=== PATIENT | female | born 1945 | race Caucasian/White ===

== ENCOUNTER 2016-06-27 06:52 | Inpatient (IN) | payer MEDICARE ==
[~2016-06-27] VITALS: Ht 152.4 cm; Wt 40.8 kg
[~2016-06-27 06:52] MED LIST: BACTRIM DS 8001 TAB PO; FOLIC ACID 11 MG/TA1 PO; INDERAL 20MG20 MG PO; KLOR-CON M2020 MEQ PO; LEVAQUIN 5500 MG/TA1 PO; LIBRIUM 25M25 MG/CAP PO; MEGACE ORAL40 MG/ML PO; MULTI VITAMINS1 TAB PO; MYSOLINE 5050 MG/TAB PO; NORCO 325 MG-51 TAB PO; THIAMINE 1100 MG/TAB PO; TYLENOL 325MG325 MG PO; TYLENOL 500MG500 MG PO; ULTRAM 50MG TAB50 MG PO; UNABLE; VITAMIN C500 MG PO
[2016-06-27 07:38] LABS: BASO % 0.7 % (0.0-2.0); EOS # 0.1 (0.0-0.7); GRAN # 2.6 (1.4-6.5); GRAN % 46.4 % (42.2-75.2); HEMATOCRIT 39.4 % (37.0-47.0); HEMOGLOBIN 13.7 g/dl (12.5-16.0); LYMPH # 2.3 (1.2-3.4); LYMPH % 41.8 % (20.0-51.0); MEAN CELL VOLUME 103 fl (80.0-100.0); MEAN CORPUSCULAR HEMOGLOBIN 36 pg (27.0-31.0); MEAN CORPUSCULAR HGB CONC 35 g/dl (33.0-37.0); MEAN PLATELET VOLUME 9.3 fl (7.4-10.4); MONO # 0.5 (0.1-0.6); MONO % 8.9 % (1.7-9.3); PLATELET COUNT 298 K/mm3 (130-400); RED BLOOD COUNT 3.83 M/mm3 (4.10-5.30); REDCELL DISTRIBUTION WIDTH-CV 14.5 % (11.5-14.5); WHITE BLOOD COUNT 5.6 K/mm3 (4.8-10.8)
[2016-06-27 08:07] LABS: PARTIAL THROMBOPLASTIN TIME 32.9 SECONDS (26.0-37.0)
[2016-06-27 08:12] LABS: ADJUSTED CALCIUM 8.5 mg/dL (8.4-10.2); ALANINE AMINOTRANSFERASE 29 U/L (9-52); ALBUMIN 4.2 gm/dL (3.5-5.0); ALKALINE PHOSPHATASE 134 U/L (50-136); ANION GAP 12 mmol/L (7-16); BILIRUBIN,TOTAL 0.8 mg/dL (0.0-1.0); BLOOD UREA NITROGEN 10 mg/dL (7-17); C-REACTIVE PROTEIN 0.7 mg/dL (0.0-0.9); CALCIUM 8.7 mg/dL (8.4-10.2); CARBON DIOXIDE 30 mmol/L (22-30); CHLORIDE 103 mmol/L (98-107); CREATININE, serum 0.47 mg/dL (0.52-1.25); GLUCOSE 96 mg/dL (74-106); PHOSPHOROUS 4.1 mg/dL (2.5-4.5); POTASSIUM 3.7 mmol/L (3.4-5.0); SODIUM 144 mmol/L (137-145); TOTAL PROTEIN 7.2 gm/dL (6.4-8.2)
[2016-06-27 08:22] LABS: TROPONIN-I < 0.012 ng/mL (0.000-0.034)
[2016-06-27 10:12] LABS: PH 6 (5-8); SQUAMOUS EPITHELIAL 0-2 /hpf; URINE APPEARANCE Clear; URINE BACTERIA None Seen /hpf; URINE BILIRUBIN Negative (NEGATIVE); URINE BLOOD 1+ (NEGATIVE); URINE COLOR Yellow; URINE GLUCOSE Negative (NEGATIVE); URINE KETONE Negative (NEGATIVE); URINE RBC 0-2 /hpf; URINE UROBILINOGEN Negative (NEGATIVE); URINE WBC 0-2 /hpf
[2016-06-27 12:15] VITALS: BP 132/82; PULSE 100; TEMP 97.2
[2016-06-27] MEDS ORDERED: EXCEDRIN TENSIO1 TAB PO (15:17)
[2016-06-27] MEDS ORDERED: ASPIRIN 32325 MG/TA1 PO (15:17)
[2016-06-27 16:17] VITALS: BP 118/74; PULSE 103; TEMP 98.5
[2016-06-27 18:09] VITALS: BP 133/92; PULSE 108; TEMP 97.2
[2016-06-27 19:45] VITALS: BP 104/61; PULSE 124; TEMP 99.2
[2016-06-27 22:06] VITALS: BP 123/73; PULSE 94; TEMP 98.1
[2016-06-28] VITALS (11 sets, daily range): BP systolic 120–140; BP diastolic 64–98; PULSE 79–120; TEMP 96.4–98.4
[2016-06-28 06:25] LABS: PH 6 (5-8); SQUAMOUS EPITHELIAL 0-2 /hpf; URINE APPEARANCE Hazy; URINE BACTERIA None Seen /hpf; URINE BILIRUBIN Negative (NEGATIVE); URINE BLOOD Negative (NEGATIVE); URINE COLOR Amber; URINE GLUCOSE Negative (NEGATIVE); URINE KETONE Negative (NEGATIVE); URINE RBC 0-2 /hpf
[2016-06-28 06:29] LABS: AMPHETAMINE URINE NEGATIVE; BARBITURATES URINE POSITIVE; BENZODIAZEPINES URINE POSITIVE; BUPRENORPHINE URINE NEGATIVE; METHADONE URINE NEGATIVE; OPIATES URINE NEGATIVE; OXYCODONE URINE NEGATIVE; PHENCYCLIDINE URINE NEGATIVE; PROPOXYPHENE URINE NEGATIVE; THC CANNABINOIDS URINE NEGATIVE
[2016-06-28 08:41] LABS: CALCIUM 9.8 mg/dL (8.4-10.2); CREATININE, serum 0.53 mg/dL (0.52-1.25); POTASSIUM 3.8 mmol/L (3.4-5.0)
[2016-06-29] VITALS (7 sets, daily range): BP systolic 108–153; BP diastolic 66–89; PULSE 66–113; TEMP 96.2–98.3
[2016-06-29] MEDS ORDERED: CLEOCIN HCL300 MG PO (08:44)
[2016-06-29] MEDS ORDERED: DUO-KAPS1 CAP PO (08:46)
[2016-06-29] MEDS ORDERED: FOLIC ACID 11 MG/TA1 PO (08:46)
[2016-06-29] MEDS ORDERED: MIRTAZAPINE7.5 MG PO (08:46)
[2016-06-29] MEDS ORDERED: THIAMINE 1100 MG/TAB PO (08:46)
== END 2016-06-29 15:02 | disposition home health service (06) | DRG 897 ==
LOC: COL.ER 06:52 → MEDICAL 10:05
PROVIDERS: Emergency Medicine; Internal Medicine; Physician Assistant
DX: F10.229 Alcohol dependence with intoxication, unspecified (principal); L03.116 Cellulitis of left lower limb; Y90.8 Blood alcohol level of 240 mg/100 ml or more; G25.0 Essential tremor; I10 Essential (primary) hypertension; F32.9 Major depressive disorder, single episode, unspecified; R26.9 Unspecified abnormalities of gait and mobility; Z87.891 Personal history of nicotine dependence; Z91.81 History of falling
CPT/HCPCS: 90791-AI; 99222-AI; 99232-AI; 99239; J1650; J3360; J3411; J7030; Q9967

== ENCOUNTER 2016-07-13 21:10 | Emergency (ER) | payer MEDICARE ==
[~2016-07-13] VITALS: Ht 167.6 cm; Wt 45.5 kg
[~2016-07-13 21:10] MED LIST changes: +ASPIRIN 32325 MG/TA1 PO; +CLEOCIN HCL300 MG PO; +DUO-KAPS1 CAP PO; +EXCEDRIN TENSIO1 TAB PO; +MIRTAZAPINE7.5 MG PO
[2016-07-13 21:13] VITALS: TEMP 97.5
[2016-07-13 22:46] LABS: PH 7 (5-8); SQUAMOUS EPITHELIAL 0-2 /hpf; URINE APPEARANCE Clear; URINE BACTERIA None Seen /hpf; URINE BILIRUBIN Negative (NEGATIVE); URINE BLOOD Negative (NEGATIVE); URINE COLOR Yellow; URINE GLUCOSE Negative (NEGATIVE); URINE KETONE Negative (NEGATIVE); URINE RBC 0-2 /hpf; URINE UROBILINOGEN Negative (NEGATIVE); URINE WBC 0-2 /hpf
[2016-07-13 22:49] LABS: BASO # 0.1 (0.0-0.2); BASO % 1.1 % (0.0-2.0); EOS # 0.1 (0.0-0.7); EOS % 1.4 % (0-4.0); GRAN % 64.8 % (42.2-75.2); HEMOGLOBIN 12.5 g/dl (12.5-16.0); LYMPH % 21.8 % (20.0-51.0); MEAN CELL VOLUME 103 fl (80.0-100.0); MEAN CORPUSCULAR HEMOGLOBIN 36 pg (27.0-31.0); MEAN CORPUSCULAR HGB CONC 35 g/dl (33.0-37.0); MEAN PLATELET VOLUME 9.5 fl (7.4-10.4); MONO % 10.7 % (1.7-9.3); PLATELET COUNT 377 K/mm3 (130-400); RED BLOOD COUNT 3.52 M/mm3 (4.10-5.30); REDCELL DISTRIBUTION WIDTH-CV 14.6 % (11.5-14.5); WHITE BLOOD COUNT 9.3 K/mm3 (4.8-10.8)
[2016-07-13 22:50] LABS: HEMATOCRIT 36.1 % (37.0-47.0)
[2016-07-13 23:03] LABS: ADJUSTED CALCIUM 9.6 mg/dL (8.4-10.2); ALBUMIN 3.5 gm/dL (3.5-5.0); BILIRUBIN,TOTAL 1.1 mg/dL (0.0-1.0); CALCIUM 9.2 mg/dL (8.4-10.2); CREATININE, serum 0.6 mg/dL (0.52-1.25); MAGNESIUM 2.2 mg/dL (1.6-2.3); PHOSPHOROUS 3.4 mg/dL (2.5-4.5); POTASSIUM 4.2 mmol/L (3.4-5.0); TOTAL PROTEIN 6.2 gm/dL (6.4-8.2)
[2016-07-13 23:17] LABS: PROTHROMBIN TIME 11.6 SECONDS (9.7-12.8)
[2016-07-13 23:20] LABS: PARTIAL THROMBOPLASTIN TIME 27.8 SECONDS (26.0-37.0)
[2016-07-14 05:18] VITALS: BP 106/66; PULSE 93
== END 2016-07-14 05:20 | disposition home or self-care (01) ==
LOC: COL.ER 21:10
PROVIDERS: Emergency Medicine
DX: Z02.89 Encounter for other administrative examinations (principal)
CPT/HCPCS: J3360; J3411; J7030

== ENCOUNTER 2016-07-14 14:42 | Inpatient (IN) | payer MEDICARE, OTHER ==
[2016-07-14] VITALS (115 sets, daily range): BP systolic 110; BP diastolic 62; PULSE 92; TEMP 98.2; O2SAT 90–99
[~2016-07-14] VITALS: Ht 152.4 cm; Wt 49.8 kg
[2016-07-14 16:58] LABS: PROTHROMBIN TIME 11.6 SECONDS (9.7-12.8)
[2016-07-14 17:00] LABS: BASO # 0.1 (0.0-0.2); BASO % 0.5 % (0.0-2.0); EOS # 0.1 (0.0-0.7); EOS % 0.6 % (0-4.0); GRAN # 7.2 (1.4-6.5); GRAN % 77.4 % (42.2-75.2); HEMOGLOBIN 12.7 g/dl (12.5-16.0); LYMPH # 1.4 (1.2-3.4); LYMPH % 15.3 % (20.0-51.0); MEAN CELL VOLUME 104 fl (80.0-100.0); MEAN CORPUSCULAR HEMOGLOBIN 36 pg (27.0-31.0); MEAN CORPUSCULAR HGB CONC 35 g/dl (33.0-37.0); MEAN PLATELET VOLUME 9.5 fl (7.4-10.4); MONO # 0.6 (0.1-0.6); PLATELET COUNT 384 K/mm3 (130-400); REDCELL DISTRIBUTION WIDTH-CV 14.6 % (11.5-14.5); WHITE BLOOD COUNT 9.2 K/mm3 (4.8-10.8)
[2016-07-14 17:01] LABS: HEMATOCRIT 36.3 % (37.0-47.0); PARTIAL THROMBOPLASTIN TIME 30.6 SECONDS (26.0-37.0)
[2016-07-14 17:05] LABS: ALBUMIN 3.7 gm/dL (3.5-5.0); BILIRUBIN,TOTAL 1.1 mg/dL (0.0-1.0); CALCIUM 8.8 mg/dL (8.4-10.2); CREATININE, serum 0.61 mg/dL (0.52-1.25); POTASSIUM 3.9 mmol/L (3.4-5.0); TOTAL PROTEIN 6.3 gm/dL (6.4-8.2)
[2016-07-14 23:08] LABS: PH 6 (5-8); SQUAMOUS EPITHELIAL None Seen /hpf; URINE APPEARANCE Clear; URINE BACTERIA None Seen /hpf; URINE BILIRUBIN Negative (NEGATIVE); URINE BLOOD Negative (NEGATIVE); URINE COLOR Yellow; URINE GLUCOSE Negative (NEGATIVE); URINE KETONE Trace (NEGATIVE); URINE RBC 0-2 /hpf; URINE UROBILINOGEN Negative (NEGATIVE); URINE WBC 0-2 /hpf
[2016-07-15] VITALS (443 sets, daily range): BP systolic 76–155; BP diastolic 42–101; PULSE 73–100; TEMP 97–98.8; O2SAT 80–98
[2016-07-15 06:14] LABS: MEAN CELL VOLUME 104 fl (80.0-100.0); MEAN CORPUSCULAR HGB CONC 34 g/dl (33.0-37.0); MEAN PLATELET VOLUME 9.5 fl (7.4-10.4); PLATELET COUNT 324 K/mm3 (130-400); RED BLOOD COUNT 3.14 M/mm3 (4.10-5.30); REDCELL DISTRIBUTION WIDTH-CV 14.7 % (11.5-14.5)
[2016-07-15 06:23] LABS: HEMATOCRIT 32.7 % (37.0-47.0); HEMOGLOBIN 11.2 g/dl (12.5-16.0); MEAN CORPUSCULAR HEMOGLOBIN 36 pg (27.0-31.0)
[2016-07-15 06:27] LABS: CALCIUM 8.6 mg/dL (8.4-10.2); CREATININE, serum 0.54 mg/dL (0.52-1.25); MAGNESIUM 1.6 mg/dL (1.6-2.3); PHOSPHOROUS 3.4 mg/dL (2.5-4.5); POTASSIUM 3.7 mmol/L (3.4-5.0)
[2016-07-16] VITALS (11 sets, daily range): BP systolic 88–120; BP diastolic 50–96; PULSE 80–113; TEMP 97.4–99.1
[2016-07-16 09:29] LABS: HEMOGLOBIN 9.5 g/dl (12.5-16.0)
[2016-07-17] VITALS (11 sets, daily range): BP systolic 107–143; BP diastolic 56–82; PULSE 64–110; TEMP 97.2–99.1
[2016-07-17 09:21] LABS: HEMATOCRIT 28.7 % (37.0-47.0); HEMOGLOBIN 9.8 g/dl (12.5-16.0)
[2016-07-17 16:35] LABS: INFLUENZA B NEGATIVE
[2016-07-18] VITALS (10 sets, daily range): BP systolic 109–141; BP diastolic 54–90; PULSE 57–108; TEMP 97.2–98.2
[2016-07-19] VITALS (10 sets, daily range): BP systolic 107–149; BP diastolic 58–87; PULSE 60–114; TEMP 97.8–99.8
[2016-07-19] MEDS ORDERED: ASPI325T6 PO (08:17)
[2016-07-19] MEDS ORDERED: REMERON 15M15 MG/TA1 PO (08:19)
[2016-07-19] MEDS ORDERED: MUCINEX1200 MG PO (08:20)
[2016-07-19] MEDS ORDERED: DULCOLAX S10 MG/SUPP RC (08:21)
[2016-07-19] MEDS ORDERED: SENOKOT S 50 MG1 TAB PO (08:21)
[2016-07-19] MEDS ORDERED: NORCO 325 MG-51 TAB PO (08:22)
[2016-07-19 08:39] LABS: BASO % 0.3 % (0.0-2.0); EOS # 0.4 (0.0-0.7); GRAN # 4.9 (1.4-6.5); GRAN % 56.5 % (42.2-75.2); LYMPH # 1.8 (1.2-3.4); MEAN CELL VOLUME 108 fl (80.0-100.0); MEAN CORPUSCULAR HGB CONC 34 g/dl (33.0-37.0); MEAN PLATELET VOLUME 9.3 fl (7.4-10.4); MONO # 1.4 (0.1-0.6); MONO % 16.4 % (1.7-9.3); PLATELET COUNT 373 K/mm3 (130-400); RED BLOOD COUNT 2.72 M/mm3 (4.10-5.30); REDCELL DISTRIBUTION WIDTH-CV 14.9 % (11.5-14.5); WHITE BLOOD COUNT 8.7 K/mm3 (4.8-10.8)
[2016-07-19 08:40] LABS: HEMATOCRIT 29.3 % (37.0-47.0); HEMOGLOBIN 9.9 g/dl (12.5-16.0); MEAN CORPUSCULAR HEMOGLOBIN 36 pg (27.0-31.0)
[2016-07-19 08:49] LABS: CALCIUM 8.8 mg/dL (8.4-10.2); CREATININE, serum 0.45 mg/dL (0.52-1.25); POTASSIUM 3.4 mmol/L (3.4-5.0)
[2016-07-19] MEDS ORDERED: LIBRIUM 25M25 MG/CAP PO (10:35)
== END 2016-07-19 15:20 | disposition home or self-care (01) | DRG 470 ==
LOC: COL.ER 14:42 → IMCU 17:51 → COL.ER 17:51 → IMCU 17:51 → SURG 07-15 09:12 → IMCU 07-15 09:12 → SURG 07-15 20:20 → IMCU 07-15 20:20 → SURG 07-19 15:20
PROVIDERS: Emergency Medicine; Internal Medicine; Nurse Practitioner Family; Orthopaedic Surgery Sports Medicine
PROC: 0SRS0J9 Replacement of Left Hip Joint, Femoral Surface with Synthetic Substitute, Cemented, Open Approach (ICD-10-PCS; principal; 2016-07-15 08:00)
DX: S72.002A Fracture of unspecified part of neck of left femur, initial encounter for closed fracture (principal); F10.24 Alcohol dependence with alcohol-induced mood disorder; D62 Acute posthemorrhagic anemia; F10.239 Alcohol dependence with withdrawal, unspecified; R45.851 Suicidal ideations; E44.0 Moderate protein-calorie malnutrition; Z66 Do not resuscitate; W18.30XA Fall on same level, unspecified, initial encounter; Z87.891 Personal history of nicotine dependence; I10 Essential (primary) hypertension; T51.0X1A Toxic effect of ethanol, accidental (unintentional), initial encounter; Y90.8 Blood alcohol level of 240 mg/100 ml or more
CPT/HCPCS: OP; 90791-AI; 99223-AI; 99232-AI; 99233-AI; 99239; A9284; C1776; J0690; J1644; J2250; J2270; J2370; J2405; J2704; J3010; J3360; J3411; J7030; J7120

== ENCOUNTER → 2016-07-28 | Outpatient (REF) ==
[~2016-07-28] MED LIST changes: +ASPI325T6 PO; +DULCOLAX S10 MG/SUPP RC; +MUCINEX1200 MG PO; +PRILOTC PO; +REMERON 15M15 MG/TA1 PO; +SENOKOT S 50 MG1 TAB PO
== END ==
LOC: ZLAB.STJ 11:07
DX: Z01.89 Encounter for other specified special examinations (principal)

== ENCOUNTER → 2016-10-12 | Outpatient (CLI) | payer MEDICARE, OTHER | LOC: BHSO 11:07 | DX: F10.20 Alcohol dependence, uncomplicated (principal) ==

== ENCOUNTER 2016-12-25 19:47 | Emergency (ER) | payer MEDICARE, OTHER ==
[~2016-12-25] VITALS: Ht 152.4 cm; Wt 63.6 kg
[~2016-12-25 19:47] MED LIST changes: -PRILOTC PO
[2016-12-25 19:52] VITALS: BP 94/68; TEMP 97.5
[2016-12-25 20:55] LABS: BASO # 0.1 (0.0-0.2); BASO % 1.3 % (0.0-2.0); EOS # 0.2 (0.0-0.7); EOS % 2.9 % (0-4.0); GRAN # 5.2 (1.4-6.5); GRAN % 62.7 % (42.2-75.2); HEMATOCRIT 39.2 % (37.0-47.0); HEMOGLOBIN 13.4 g/dl (12.5-16.0); LYMPH # 2.1 (1.2-3.4); LYMPH % 25.1 % (20.0-51.0); MEAN CELL VOLUME 100 fl (80.0-100.0); MEAN CORPUSCULAR HEMOGLOBIN 34 pg (27.0-31.0); MEAN CORPUSCULAR HGB CONC 34 g/dl (33.0-37.0); MEAN PLATELET VOLUME 9.2 fl (7.4-10.4); MONO # 0.6 (0.1-0.6); MONO % 7.4 % (1.7-9.3); PLATELET COUNT 634 K/mm3 (130-400); RED BLOOD COUNT 3.93 M/mm3 (4.10-5.30); REDCELL DISTRIBUTION WIDTH-CV 13.9 % (11.5-14.5); WHITE BLOOD COUNT 8.3 K/mm3 (4.8-10.8)
[2016-12-25 21:24] LABS: PH 6 (5-8); SQUAMOUS EPITHELIAL 0-2 /hpf; URINE APPEARANCE Clear; URINE BACTERIA Rare /hpf; URINE BILIRUBIN Negative (NEGATIVE); URINE BLOOD 3+ (NEGATIVE); URINE COLOR Yellow; URINE GLUCOSE Negative (NEGATIVE); URINE KETONE Negative (NEGATIVE); URINE RBC None Seen /hpf; URINE UROBILINOGEN Negative (NEGATIVE); URINE WBC 0-2 /hpf
[2016-12-25 21:32] LABS: ADJUSTED CALCIUM 8.8 mg/dL (8.4-10.2); ALBUMIN 3.9 gm/dL (3.5-5.0); CALCIUM 8.7 mg/dL (8.4-10.2); CREATININE, serum 0.56 mg/dL (0.52-1.25); MAGNESIUM 3.5 mg/dL (1.6-2.3); POTASSIUM 3.6 mmol/L (3.4-5.0); TOTAL PROTEIN 6.7 gm/dL (6.4-8.2)
[2016-12-25 22:30] VITALS: PULSE 64
== END 2016-12-25 22:30 | disposition home or self-care (01) ==
LOC: COL.ER 19:47
PROVIDERS: Emergency Medicine
DX: S61.512A Laceration without foreign body of left wrist, initial encounter (principal); F10.129 Alcohol abuse with intoxication, unspecified; Y90.7 Blood alcohol level of 200-239 mg/100 ml; Z23 Encounter for immunization; Z79.82 Long term (current) use of aspirin; W18.39XA Other fall on same level, initial encounter; Y92.009 Unspecified place in unspecified non-institutional (private) residence as the place of occurrence of the external cause
CPT/HCPCS: J3411; J3475; J7030

== ENCOUNTER 2017-01-04 11:28 | Emergency (ER) | payer MEDICARE | END 2017-01-04 11:49 | disposition home or self-care (01) | LOC: COL.ER 11:28 | DX: S61.512D Laceration without foreign body of left wrist, subsequent encounter (principal); W45.8XXD Other foreign body or object entering through skin, subsequent encounter ==

== ENCOUNTER 2017-02-11 18:22 | Emergency (ER) | payer MEDICARE, OTHER ==
[2017-02-11 18:23] VITALS: TEMP 97.5
[2017-02-11 19:16] LABS: BASO # 0.1 (0.0-0.2); BASO % 0.6 % (0.0-2.0); EOS % 0.4 % (0-4.0); GRAN % 71.8 % (42.2-75.2); HEMATOCRIT 42.2 % (37.0-47.0); HEMOGLOBIN 14.4 g/dl (12.5-16.0); LYMPH # 2.3 (1.2-3.4); LYMPH % 20.9 % (20.0-51.0); MEAN CELL VOLUME 101 fl (80.0-100.0); MEAN CORPUSCULAR HEMOGLOBIN 34 pg (27.0-31.0); MEAN CORPUSCULAR HGB CONC 34 g/dl (33.0-37.0); MEAN PLATELET VOLUME 10.2 fl (7.4-10.4); MONO # 0.7 (0.1-0.6); PLATELET COUNT 295 K/mm3 (130-400); RED BLOOD COUNT 4.18 M/mm3 (4.10-5.30); REDCELL DISTRIBUTION WIDTH-CV 12.9 % (11.5-14.5); WHITE BLOOD COUNT 11.1 K/mm3 (4.8-10.8)
[2017-02-11 19:29] LABS: PH 6 (5-8); SQUAMOUS EPITHELIAL 0-2 /hpf; URINE APPEARANCE Clear; URINE BACTERIA None Seen /hpf; URINE BILIRUBIN Negative (NEGATIVE); URINE BLOOD Negative (NEGATIVE); URINE COLOR Yellow; URINE GLUCOSE 1+ (NEGATIVE); URINE KETONE 1+ (NEGATIVE); URINE UROBILINOGEN Negative (NEGATIVE); URINE WBC 0-2 /hpf
[2017-02-11 19:30] LABS: ADJUSTED CALCIUM 9.7 mg/dL (8.4-10.2); ALANINE AMINOTRANSFERASE 25 U/L (9-52); ALBUMIN 4.7 gm/dL (3.5-5.0); ALKALINE PHOSPHATASE 130 U/L (50-136); ANION GAP 11 mmol/L (7-16); BILIRUBIN,TOTAL 2.2 mg/dL (0.0-1.0); BLOOD UREA NITROGEN 31 mg/dL (7-17); C-REACTIVE PROTEIN < 0.5 mg/dL (0.0-0.9); CALCIUM 10.3 mg/dL (8.4-10.2); CARBON DIOXIDE 29 mmol/L (22-30); CHLORIDE 94 mmol/L (98-107); CREATININE, serum 0.49 mg/dL (0.52-1.25); GLUCOSE 129 mg/dL (74-106); LIPASE 40 U/L (23-300); POTASSIUM 4.2 mmol/L (3.4-5.0); SODIUM 133 mmol/L (137-145); TOTAL PROTEIN 7.7 gm/dL (6.4-8.2)
[2017-02-11] MEDS ORDERED: PRILOTC PO (20:40)
[2017-02-11 21:11] VITALS: BP 144/90; PULSE 84
== END 2017-02-11 21:15 | disposition home or self-care (01) ==
LOC: COL.ER 18:22
PROVIDERS: Emergency Medicine
DX: K29.70 Gastritis, unspecified, without bleeding (principal); Z90.89 Acquired absence of other organs
CPT/HCPCS: J7030; Q9967

== ENCOUNTER 2017-04-02 02:15 | Emergency (ER) | payer MEDICARE ==
[~2017-04-02] VITALS: Ht 152.4 cm; Wt 43.2 kg
[~2017-04-02 02:15] MED LIST changes: +PRILOTC PO
[2017-04-02 02:49] LABS: COLLECTION METHOD CLEAN CATCH
[2017-04-02 02:55] LABS: MUCOUS Present /lpf; PH 6 (5-8); SQUAMOUS EPITHELIAL 0-2 /hpf; URINE APPEARANCE Clear; URINE BACTERIA None Seen /hpf; URINE BILIRUBIN Negative (NEGATIVE); URINE BLOOD Negative (NEGATIVE); URINE COLOR Straw; URINE GLUCOSE Negative (NEGATIVE); URINE KETONE Negative (NEGATIVE); URINE LEUKOCYTE ESTERASE Negative (NEGATIVE); URINE PROTEIN(semi-quant) Negative (NEGATIVE); URINE RBC 0-2 /hpf; URINE UROBILINOGEN Negative (NEGATIVE); URINE WBC 0-2 /hpf
[2017-04-02 03:02] LABS: AMPHETAMINE URINE NEGATIVE; BARBITURATES URINE NEGATIVE; BENZODIAZEPINES URINE NEGATIVE; BUPRENORPHINE URINE NEGATIVE; METHADONE URINE NEGATIVE; OPIATES URINE NEGATIVE; OXYCODONE URINE NEGATIVE; PHENCYCLIDINE URINE NEGATIVE; PROPOXYPHENE URINE NEGATIVE; THC CANNABINOIDS URINE NEGATIVE; TRICYCLIC ANTIDEPRESS URINE NEGATIVE
[2017-04-02 03:10] LABS: BASO # 0.1 (0.0-0.2); BASO % 1.1 % (0.0-2.0); EOS # 0.4 (0.0-0.7); EOS % 5.1 % (0-4.0); GRAN # 3.9 (1.4-6.5); GRAN % 51.5 % (42.2-75.2); HEMATOCRIT 41.3 % (37.0-47.0); HEMOGLOBIN 14.3 g/dl (12.5-16.0); LYMPH # 2.7 (1.2-3.4); LYMPH % 35.3 % (20.0-51.0); MEAN CELL VOLUME 99 fl (80.0-100.0); MEAN CORPUSCULAR HEMOGLOBIN 34 pg (27.0-31.0); MEAN CORPUSCULAR HGB CONC 35 g/dl (33.0-37.0); MEAN PLATELET VOLUME 9.2 fl (7.4-10.4); MONO # 0.5 (0.1-0.6); MONO % 6.7 % (1.7-9.3); PLATELET COUNT 323 K/mm3 (130-400); RED BLOOD COUNT 4.18 M/mm3 (4.10-5.30); WHITE BLOOD COUNT 7.6 K/mm3 (4.8-10.8)
[2017-04-02 03:20] LABS: ADJUSTED CALCIUM 9.4 mg/dL (8.4-10.2); ALANINE AMINOTRANSFERASE 26 U/L (9-52); ALBUMIN 4.4 gm/dL (3.5-5.0); ALCOHOL(ethanol),MEDICAL 242 mg/dL; ALKALINE PHOSPHATASE 99 U/L (50-136); ANION GAP 16 mmol/L (7-16); BILIRUBIN,TOTAL 0.6 mg/dL (0.0-1.0); BLOOD UREA NITROGEN 20 mg/dL (7-17); CALCIUM 9.7 mg/dL (8.4-10.2); CARBON DIOXIDE 24 mmol/L (22-30); CHLORIDE 100 mmol/L (98-107); CREATININE, serum 0.64 mg/dL (0.52-1.25); GLUCOSE 102 mg/dL (74-106); MAGNESIUM 2.1 mg/dL (1.6-2.3); PHOSPHOROUS 4.2 mg/dL (2.5-4.5); POTASSIUM 4.3 mmol/L (3.4-5.0); SODIUM 140 mmol/L (137-145); TOTAL PROTEIN 7.1 gm/dL (6.4-8.2)
[2017-04-02 03:22] LABS: ACETAMINOPHEN < 10 ug/mL (10-30); SALICYLATE < 1.0 mg/dL
[2017-04-02 14:15] VITALS: BP 121/80; PULSE 113; TEMP 97.5
== END 2017-04-02 14:15 | disposition home or self-care (01) ==
LOC: COL.ER 02:15
PROVIDERS: Emergency Medicine
DX: F10.129 Alcohol abuse with intoxication, unspecified (principal); R45.851 Suicidal ideations; I10 Essential (primary) hypertension; F32.9 Major depressive disorder, single episode, unspecified; Z79.82 Long term (current) use of aspirin
CPT/HCPCS: J3411; J7030